=== PATIENT | male | born 1970 | race Caucasian/White ===

== ENCOUNTER 2025-09-25 12:35 | Inpatient (IN) | payer OTHER ==
[~2025-09-25] VITALS: Ht 190.5 cm; Wt 95.0 kg
[2025-09-25] MEDS ORDERED: Ipratropium/Albuterol SulF 2.5-0.5MG/3 ML Amp INH ONE (13:00)
[2025-09-25] MEDS ORDERED: Albuterol 2.5 MG/3 ML VIAL INH SCH (13:00)
[2025-09-25 13:32] LABS: pH Blood Venous 7.38 (7.34-7.37)
[2025-09-25 13:41] LABS: BASOPHILS ABSOLUTE AUTO 0.03 K/mm3 (0.00-0.23); BASOPHILS PERCENT AUTO 0 % (0-2); EOSINOPHILS ABSOLUTE AUTO 0.07 K/mm3 (0.00-0.68); EOSINOPHILS PERCENT AUTO 1 % (0-6); Hematocrit 39.0 % (37.0-53.0); Hemoglobin 12.0 g/dL (13.5-17.5); IMMATURE GRAN ABSOLUTE AUTO 0.02 K/mm3 (0.00-0.10); IMMATURE GRAN PERCENT AUTO 0 % (0-1); LYMPHOCYTES ABSOLUTE AUTO 1.11 K/mm3 (0.84-5.20); LYMPHOCYTES PERCENT AUTO 16 % (21-46); MONOCYTES ABSOLUTE AUTO 0.28 K/mm3 (0.16-1.47); MONOCYTES PERCENT AUTO 4 % (4-13); Mean Corpuscular HGB Conc 30.8 g/dL (31.5-36.5); Mean Corpuscular Volume 80 fL (80-100); NEUTROPHILS ABSOLUTE AUTO 5.65 K/mm3 (1.96-9.15); NEUTROPHILS PERCENT AUTO 79 % (41-73); NRBC ABSOLUTE 0.00 K/mm3 (0.00-0.02); NRBC Auto 0.0 /100 WBC (0.0-0.2); Platelet Count 457 K/mm3 (150-400); RDW Coefficient Variation 15.2 % (11.7-14.2); RDW Standard Deviation 43.9 fL (35.1-46.3)
[2025-09-25 13:50] LABS: Alanine Aminotransfer (ALT/SGP 12.0 U/L (12-78); Albumin, Blood 2.8 g/dL (3.4-5.0); Albumin/Globulin Ratio 0.7 (0.8-1.8); Anion Gap 9.0 mmol/L (3-11); Aspartate Aminotrans (AST/SGOT 11.0 U/L (12-37); Bilirubin, Total 0.3 mg/dL (0.1-1.0); Blood Urea Nitrogen 17.0 mg/dL (8-24); CO2, Blood 28.0 mmol/L (21-32); Calcium, Blood 9.3 mg/dL (8.5-10.1); Chloride, Blood 104.0 mmol/L (98-108); Creatinine, Blood 0.76 mg/dL (0.60-1.20); Globulin, Blood 4.1 g/dL (2.2-4.0); Glucose, Blood 189.0 mg/dL (70-99); Magnesium, Blood 2.1 mg/dL (1.6-2.4); Potassium, Blood 4.1 mmol/L (3.5-5.5); Sodium, Blood 137.0 mmol/L (136-145); Total Protein, Blood 6.9 g/dL (6.4-8.2)
[2025-09-25 14:12] LABS: Influenza A, PCR NEGATIVE (NEGATIVE); Influenza B, PCR NEGATIVE (NEGATIVE); Resp Syncytial Virus, PCR NEGATIVE (NEGATIVE); SARS-Cov-2 (COVID-19) PCR, MMC NEGATIVE (NEGATIVE)
[2025-09-25] MEDS ORDERED: NS 1,000 ML IV SCH ×2 (14:40→18:00)
[2025-09-25] MEDS ORDERED: CefTRIAXone Sodium 1,000 MG in NS 50 ML IV ONE (14:40)
[2025-09-25] MEDS ORDERED: Ipratropium/Albuterol SulF 2.5-0.5MG/3 ML Amp INH SCH ×2 (16:05→18:35)
[2025-09-25] MEDS ORDERED: Albuterol 2.5 MG/3 ML VIAL INH PRN ×2 (16:05→18:35)
[2025-09-25] MEDS ORDERED: FLU VACC TS2025-26(6MOS UP)/PF 45 MCG/0.5 ML SYRINGE IM SCH (16:05)
[2025-09-25 16:20] LABS: pH Blood Arterial 7.39 (7.35-7.45)
[2025-09-25] MEDS ORDERED: Budesonide 0.25 MG / 2 ML RESP INH SCH (16:45)
[2025-09-25 17:46] VITALS: BP 141/67
[2025-09-25] MEDS ORDERED: ASPI325 PO (17:56)
[2025-09-25] MEDS ORDERED: Piperacillin/Tazobactam Sod 3.375 GM in NS 100 ML IV SCH (18:00)
[2025-09-25 19:33] VITALS: BP 121/54
--- NOTE | 2025-09-25 19:39 | NUR ---
pt arrived to 331 via gurney from ED, he is able to stand and tx to bed, he is working to breath, is currently on 9 liters 02 via oxymizer, sats are in the 80's, reports productive cough of yellow/orange sputum, has been sob for a few months he resports, a/ox4, pleasant and cooperative with care, follows commands well, lungs are course with exp wheezing t/o, hrr, no edema noted, ppp+2, cap refill<3 sec, vs stable, afebrile, pivx2, sites are clear and patent, btx4, abd flat soft nontender, voids without diff, states he's been constipated for weeks, skin c/w/d, quyen espinoza, oriented to room layout and call system, call light in reach, call RT to assist with o2 levels.
[2025-09-25] MEDS ORDERED: Lactobacil 2-S.Thermo-Bifido 1 1 Cap PO SCH (21:00)
[2025-09-25 23:12] LABS: Influenza A/2009-H1 Not Detected (NOT DETECT); SARS-Cov-2 (COVID-19), BioFire Not Detected (NOT DETECT)
--- NOTE | 2025-09-25 23:37 | NUR ---
HOSPITALIST NOTIFIED THAT PT RESPIRATORY PCR PANEAL CAME BACK POSITIVE FOR ENTEROVIRUS/RHINOVIRUS. PER MD CURRENT IV ABX REGIMENT IS SUFFICIENT AT THIS TIME. PT STILL ON AIRVO 40 LPM @ 75% FIO2, SPO2 >95% ON BIOX. HOSPITALIST GAVE ORDER TO COMTINUE MONITORING PT RESPIRATORY STATUS AND IF PT STARTS TO DECOMPENSATE, PROBABLE TRANSFER TO PCU FOR HIGHER LEVEL OF CARE.
[2025-09-26 04:34] VITALS: BP 139/79
[2025-09-26 05:30] LABS: BASOPHILS ABSOLUTE AUTO 0.01 K/mm3 (0.00-0.23); BASOPHILS PERCENT AUTO 0 % (0-2); EOSINOPHILS ABSOLUTE AUTO 0.00 K/mm3 (0.00-0.68); EOSINOPHILS PERCENT AUTO 0 % (0-6); Hematocrit 35.5 % (37.0-53.0); Hemoglobin 10.7 g/dL (13.5-17.5); IMMATURE GRAN ABSOLUTE AUTO 0.01 K/mm3 (0.00-0.10); IMMATURE GRAN PERCENT AUTO 0 % (0-1); LYMPHOCYTES ABSOLUTE AUTO 0.40 K/mm3 (0.84-5.20); LYMPHOCYTES PERCENT AUTO 9 % (21-46); MONOCYTES ABSOLUTE AUTO 0.02 K/mm3 (0.16-1.47); MONOCYTES PERCENT AUTO 0 % (4-13); Mean Corpuscular HGB Conc 30.1 g/dL (31.5-36.5); Mean Corpuscular Volume 81 fL (80-100); NEUTROPHILS ABSOLUTE AUTO 4.09 K/mm3 (1.96-9.15); NEUTROPHILS PERCENT AUTO 90 % (41-73); NRBC ABSOLUTE 0.00 K/mm3 (0.00-0.02); NRBC Auto 0.0 /100 WBC (0.0-0.2); Platelet Count 390 K/mm3 (150-400); RDW Coefficient Variation 15.3 % (11.7-14.2); RDW Standard Deviation 44.4 fL (35.1-46.3)
--- NOTE | 2025-09-26 05:33 | NUR ---
SHIFT SUMMARY NOC PT A/O X 4. PLEASANT AND COOPERATIVE WITH CARE. VSS. PT PUT ON AIRVO 40 LPM FIO2 61% TO MAINTAIN SPO2 >90% AT SHIFT CHANGE. PT MAINTAINED SPO2 >95% OVERNIGHT, PT ALSO RECEIVED ONE TIME DOSE OF SOLU MEDROL 125 MG IV. PT REPIRATORY PANEL CAME BACK POSITIVE FOR ENTEROVIRUS/RHINOVIRUS, IS AWARE AND STATED PROPER IV ABX COVERAGE CURRENTLY, PENDING SPUTUM/URINE SAMPLES. DROPLET/ENTERIC CONTACT ISOLATION PRECAUTIONS INITIATED. PT CURRENTLY RESTING WITH BED IN LOWEST POSITION, AND CALL LIGHT WITHIN REACH.
[2025-09-26 05:51] LABS: Anion Gap 9.0 mmol/L (3-11); Blood Urea Nitrogen 16.0 mg/dL (8-24); CO2, Blood 25.0 mmol/L (21-32); Calcium, Blood 9.0 mg/dL (8.5-10.1); Chloride, Blood 107.0 mmol/L (98-108); Creatinine, Blood 0.74 mg/dL (0.60-1.20); Glucose, Blood 292.0 mg/dL (70-99); Potassium, Blood 5.1 mmol/L (3.5-5.5); Sodium, Blood 136.0 mmol/L (136-145)
[2025-09-26 07:19] VITALS: BP 132/80
[2025-09-26] MEDS ORDERED: Enoxaparin 40 MG/0.4 ML SYR SC SCH (09:00)
[2025-09-26] MEDS ORDERED: NS 250 ML IV PRN (10:20)
[2025-09-26] MEDS ORDERED: HydrALAZINE HCl 20 MG / ML 1ML Vial IV PRN (11:55)
[2025-09-26] MEDS ORDERED: Insulin Human Lispro 100 Units/ML 3ML Syringe SC SCH ×2 (12:25→16:30)
[2025-09-26 12:32] LABS: Prothrombin Time Results 11.9 Sec (9.7-11.5)
[2025-09-26 16:33] VITALS: BP 131/66
--- NOTE | 2025-09-26 18:16 | NUR ---
SHIFT SUMMARY PT HAD HEAD CT COMPLETED TODAY WITH NO METS TO THE BRAIN PER MD. PT RELIEVED TO HEAR THIS TODAY. PT TOLERATING THE AIRVO WELL, CURRENTLY 30L AND 40%. PT COUGHING UP A SMALL AMOUNT OF BLOODY SP[UTUM. MD AWARE. NO OTHER ACUTE CHANGES IN ASSESSMENT AT THIS TIME. VS REVIEWED. PT IND IN ROOM. PLAN FOR CT GUIDED BIOPSIES TOMORROW. ORDER TO HOLD LOVENOX TOMORROW PLACED. PT DENIES OTHER NEEDS AT THIS TIME.
[2025-09-26 20:02] VITALS: BP 132/72
[2025-09-27 03:44] VITALS: BP 145/75
--- NOTE | 2025-09-27 03:47 | NUR ---
SURGICAL CONSTULT WAS CALLED IN TO DR.JENNY ODEN'S ANSWERING AYANNA @[id number].
--- NOTE | 2025-09-27 03:48 | NUR ---
SHIFT SUMMARY NO ACUTE EVENTS DURING THIS SHIFT. PT CONTINUES ON AIRVO, SETTINGS ARE 30L AND 40%. PT DENIES SOB AND REPORTS FEELING COOMFORTALE WITH AIRVO. PT HAS A PRODUCTIVE COUHM PINKINSH SPUTUM. GUAFENESIN SCHEDULED, ADMINISTERED AT HS. PT DENIES PAIN. LUNGS HAVE CRACKLES T/O PER AUSCULTATION. CONT. PULSE OX O2 SAT'S LOW 90%. BED AT THE LOWEST POSITION, CALL LIG W/I REACH.
[2025-09-27 07:24] VITALS: BP 139/75
[2025-09-27 15:04] VITALS: BP 152/88
--- NOTE | 2025-09-27 16:19 | NUR ---
PT A/OX4. PLEASANT AND COOPERATIVE WITH CARE. 1PA TO BEDSIDE COMMODE D/T SOB WITH EXERTION. REMAINS ON 30L AIRVO SATTING IN HIGH 80S TO LOW 90S ON CONT PULSE OX. DENIES PAIN. REMAINS ON DROPLET PRECAUTIONS FOR RHINO VIRUS. NO ACUTE NEEDS AT THIS TIME.
[2025-09-27 19:39] VITALS: BP 152/75
[2025-09-27] MEDS ORDERED: Ipratropium/Albuterol SulF 2.5-0.5MG/3 ML Amp INH SCH (23:10)
[2025-09-28 03:33] VITALS: BP 138/83
[2025-09-28 05:13] LABS: Hematocrit 34.2 % (37.0-53.0); Hemoglobin 10.4 g/dL (13.5-17.5); Mean Corpuscular HGB Conc 30.4 g/dL (31.5-36.5); Mean Corpuscular Volume 80 fL (80-100); NRBC ABSOLUTE 0.00 K/mm3 (0.00-0.02); NRBC Auto 0.0 /100 WBC (0.0-0.2); Platelet Count 425 K/mm3 (150-400); RDW Coefficient Variation 15.3 % (11.7-14.2); RDW Standard Deviation 44.5 fL (35.1-46.3)
--- NOTE | 2025-09-28 05:14 | NUR ---
SHIFT SUMMARY; SELPT IN SHORT INTERVALS REMAINS ON AIRVO 30L. REMAINS IN CONTACT ISOLATION FOR RHINO.
[2025-09-28 05:44] LABS: Anion Gap 9.0 mmol/L (3-11); Blood Urea Nitrogen 13.0 mg/dL (8-24); CO2, Blood 26.0 mmol/L (21-32); Calcium, Blood 9.4 mg/dL (8.5-10.1); Chloride, Blood 104.0 mmol/L (98-108); Creatinine, Blood 0.69 mg/dL (0.60-1.20); Glucose, Blood 223.0 mg/dL (70-99); Potassium, Blood 4.1 mmol/L (3.5-5.5); Sodium, Blood 135.0 mmol/L (136-145)
[2025-09-28 07:38] VITALS: BP 143/77
[2025-09-28 16:38] VITALS: BP 150/88
--- NOTE | 2025-09-28 17:41 | NUR ---
PT A/OX4. PLEASANT AND COOPERATIVE WITH CARE. PT CONTINUES TO HAVE A PRODUCTIVE COUGH WITH THICK SPUTUM. REMAINS ON 30L AIRVO SATTING IN THE MID 90S ON CONT PULSE OX. INDEPENDENT IN ROOM. USES CALL LIGHT APPROPRIATELY. NO ACUTE NEEDS AT THIS TIME.
[2025-09-28] MEDS ORDERED: Insulin Human Lispro 100 Units/ML 3ML Syringe SC ONE (18:00)
[2025-09-28 19:43] VITALS: BP 138/74
[2025-09-28] MEDS ORDERED: Insulin Glargine 100 Unit/ML 3 ML SYR SC SCH (21:00)
[2025-09-29 03:09] VITALS: BP 133/80
--- NOTE | 2025-09-29 05:07 | NUR ---
SHIFT SUMMARY A&OX4. ABLE TO MAKE NEEDS KNOWN. REPORTS SOB WITH EXCERTION BUT RECOVERS QUICKLY AT REST. AT ONE POINT THE PTS O2 CAME OFF WHILE HE WAS SLEEPING AND O2 SATS DROPPED TO 84%. PT DENIED SOB. REAPPLIED O2 AND O2 SATS INCREASED BACK UP TO 94%. PT TOLERATING INFUSIONS WELL W/O COMPLAINTS. PT CURRENTLY SLEEPING IN BED AT LOWEST POSITION WITH CALL LIGHT WITHIN REACH.
[2025-09-29 05:29] LABS: Hematocrit 35.8 % (37.0-53.0); Hemoglobin 10.6 g/dL (13.5-17.5); Mean Corpuscular HGB Conc 29.6 g/dL (31.5-36.5); Mean Corpuscular Volume 81 fL (80-100); NRBC ABSOLUTE 0.00 K/mm3 (0.00-0.02); NRBC Auto 0.0 /100 WBC (0.0-0.2); Platelet Count 423 K/mm3 (150-400); RDW Coefficient Variation 15.2 % (11.7-14.2); RDW Standard Deviation 44.6 fL (35.1-46.3)
[2025-09-29 06:06] LABS: Alanine Aminotransfer (ALT/SGP 14.0 U/L (12-78); Albumin, Blood 2.7 g/dL (3.4-5.0); Albumin/Globulin Ratio 0.8 (0.8-1.8); Anion Gap 9.0 mmol/L (3-11); Aspartate Aminotrans (AST/SGOT 9.0 U/L (12-37); Bilirubin, Total 0.2 mg/dL (0.1-1.0); Blood Urea Nitrogen 14.0 mg/dL (8-24); CO2, Blood 28.0 mmol/L (21-32); Calcium, Blood 9.3 mg/dL (8.5-10.1); Chloride, Blood 101.0 mmol/L (98-108); Creatinine, Blood 0.7 mg/dL (0.60-1.20); Globulin, Blood 3.5 g/dL (2.2-4.0); Glucose, Blood 150.0 mg/dL (70-99); Potassium, Blood 3.8 mmol/L (3.5-5.5); Sodium, Blood 134.0 mmol/L (136-145); Total Protein, Blood 6.2 g/dL (6.4-8.2)
[2025-09-29 07:19] VITALS: BP 145/80
[2025-09-29] MEDS ORDERED: Ipratropium/Albuterol SulF 2.5-0.5MG/3 ML Amp INH SCH (12:00)
--- NOTE | 2025-09-29 15:02 | NUR ---
ROUNDED WITH PATIENT, DR. ROSE, AND BSRN. DISCUSSED OPTIONS FOR DIAGNOSIS AND THE BENIFITS OF GETTING A MORE SPECIFIC DIAGNOSIS WITH A BIOPSY IN ORDER TO FIGURE OUT A TREATMENT PLAN. PATIENT IS AGREEABLE TO BIOPSY THIS HOSPITILIZATION. EXPESSED THAT THERE IS A CHANCE THE NEEDLE BIOPSY WILL NOT GIVE THE FULL PICTURE AND HE MAY STILL NEED TO TRANSFER TO A HIGHER LEVEL OF CARE TO RECIEVE A MORE INDEPTH RETREVAL OF THE TUMOR FOR DIAGNOSTIC PURPOSES. PATIENT VERBALIZED UNDERSTANDING AND WAS AGREEABLE WITH PLAN
--- NOTE | 2025-09-29 16:31 | NUR ---
PT A/OX4. PLEASANT AND COOPERATIVE WITH CARE. INDEPENDENT IN ROOM. ABLE TO MAKE NEEDS KNOWN WELL WITH CALL LIGHT. RT TURNED AIRVO UP TO 35L TODAY DUE TO PT DESATTING WITH AMBULATION. CURRENT PLAN IS FOR BIOPSY FOR DX. NO ACUTE NEEDS AT THIS TIME.
[2025-09-29 17:17] VITALS: BP 139/84
[2025-09-29 19:43] VITALS: BP 139/78
--- NOTE | 2025-09-29 20:34 | NUR ---
PTS FS WAS 416 CALLED MD AND INFORMED HIM. HE STATED TO JUST CONTINUE THE FS ORDERED AND CHECK AGAIN IN MORNING
[2025-09-30 02:48] VITALS: BP 134/75
--- NOTE | 2025-09-30 04:27 | NUR ---
SHIFT SUMMARY PT ALERT ORIENTED X 4 ABLE TO VERBALIZE NEEDS GETS UP IN HIS ROOM AD FREEDOM AND AMBULATES TO THE BATHROOM. REMAINS ON ZITHROMAX AND ZOSYN ORDERED FOR PNEUMONIA. CONTINUES ON DROPLET ISOLATION FOR RHINO VIRUS. CONTINUES ON A AIRVO AT 35L 44%. C/O SOB ON EXERTION. HES SCHEDULED TO HAVE A BIOPSY DONE THIS AM OF HIS KIDNEY DUE TO MULTIPLE NODULES AND MASSES SEEN ON HIS LUNG AND KIDNEY. NO C/O PAIN THIS SHIFT. VSS THIS SHIFT SATTING AT 94% REMAINS ON A CONTINUOUS PULSE OX. RESTING IN BED AT THIS TIME WITH CALL LIGHT IN REACH
[2025-09-30 05:05] LABS: Hematocrit 33.1 % (37.0-53.0); Hemoglobin 9.9 g/dL (13.5-17.5); Mean Corpuscular HGB Conc 29.9 g/dL (31.5-36.5); Mean Corpuscular Volume 80 fL (80-100); NRBC ABSOLUTE 0.00 K/mm3 (0.00-0.02); NRBC Auto 0.0 /100 WBC (0.0-0.2); Platelet Count 415 K/mm3 (150-400); RDW Coefficient Variation 15.2 % (11.7-14.2); RDW Standard Deviation 44.3 fL (35.1-46.3)
[2025-09-30 05:38] LABS: Alanine Aminotransfer (ALT/SGP 15.0 U/L (12-78); Albumin, Blood 2.5 g/dL (3.4-5.0); Albumin/Globulin Ratio 0.7 (0.8-1.8); Anion Gap 7.0 mmol/L (3-11); Aspartate Aminotrans (AST/SGOT 6.0 U/L (12-37); Bilirubin, Total 0.2 mg/dL (0.1-1.0); Blood Urea Nitrogen 16.0 mg/dL (8-24); CO2, Blood 29.0 mmol/L (21-32); Calcium, Blood 9.5 mg/dL (8.5-10.1); Chloride, Blood 101.0 mmol/L (98-108); Creatinine, Blood 0.69 mg/dL (0.60-1.20); Globulin, Blood 3.6 g/dL (2.2-4.0); Glucose, Blood 198.0 mg/dL (70-99); Potassium, Blood 4.2 mmol/L (3.5-5.5); Sodium, Blood 133.0 mmol/L (136-145); Total Protein, Blood 6.1 g/dL (6.4-8.2)
[2025-09-30 07:27] VITALS: BP 138/74
--- NOTE | 2025-09-30 10:32 | NUR ---
pt sitting up on the side of the bed, awake a/ox4, pleasant and cooperative with care, follows commands well, denies pain at this time, lungs have course exp wheezing t/o, on airvo at 45-44%, reports occ productive cough of yellow sputum, hrr, 2+ edema noted to b/l le, ppp+1, cap refill <3 sec, vs stable, afebrile, piv x2, to rfa and lac, sites are clear and patent, btx4, abd flat soft nontender, voids without diff, skin c/w/d, maew, quyen, call light in reach.
[2025-09-30 15:52] VITALS: BP 142/79
--- NOTE | 2025-09-30 18:37 | NUR ---
pt has had no acute changes this shift, continues on 35% airvo, sats are in the mid 90's, denies any complaints, or needs, call light in reach.
[2025-09-30 19:50] VITALS: BP 142/71
[2025-10-01] VITALS (7 sets, daily range): BP systolic 136–153; BP diastolic 72–82
--- NOTE | 2025-10-01 03:30 | NUR ---
SHIFT SUMMARY PT ALERT ORIENTED X 4 ABLE TO VERBALIZE NEEDS GETS UP IN ROOM AD FREEDOM AND AMBULATES TO THE BATHROOM. REMAINS ON AIRVO AT 35L 52& FIO2. C/O SOB WITH EXERTION. HES DUE TO HAVE A CT NEEDLE BIOPSY OF HIS RT KIDNEY TODAY. REMAINS ON ZOSYN ORDERED FOR PNEUMONIA. CONTINUES WITH A PRODUCTIVE COUGH AND CONGESTION. CONTINUES ON A CONTINUOUS PULSE OX SATTING AT 96%. REMAINS ON DROPLET CONTACT ISOLATION R/T RHINOVIRUS. HE HAS SEVERAL NODULES IN HIS LUNG AND KIDNEY. HES RESTING IN BED AT THIS TIME WITH CALL LIGHT IN REACH
[2025-10-01 05:51] LABS: BASOPHILS ABSOLUTE AUTO 0.02 K/mm3 (0.00-0.23); BASOPHILS PERCENT AUTO 0 % (0-2); EOSINOPHILS ABSOLUTE AUTO 0.03 K/mm3 (0.00-0.68); EOSINOPHILS PERCENT AUTO 0 % (0-6); Hematocrit 35.4 % (37.0-53.0); Hemoglobin 10.6 g/dL (13.5-17.5); IMMATURE GRAN ABSOLUTE AUTO 0.02 K/mm3 (0.00-0.10); IMMATURE GRAN PERCENT AUTO 0 % (0-1); LYMPHOCYTES ABSOLUTE AUTO 1.26 K/mm3 (0.84-5.20); LYMPHOCYTES PERCENT AUTO 16 % (21-46); MONOCYTES ABSOLUTE AUTO 0.33 K/mm3 (0.16-1.47); MONOCYTES PERCENT AUTO 4 % (4-13); Mean Corpuscular HGB Conc 29.9 g/dL (31.5-36.5); Mean Corpuscular Volume 80 fL (80-100); NEUTROPHILS ABSOLUTE AUTO 6.29 K/mm3 (1.96-9.15); NEUTROPHILS PERCENT AUTO 79 % (41-73); NRBC ABSOLUTE 0.00 K/mm3 (0.00-0.02); NRBC Auto 0.0 /100 WBC (0.0-0.2); Platelet Count 461 K/mm3 (150-400); RDW Coefficient Variation 15.1 % (11.7-14.2); RDW Standard Deviation 43.9 fL (35.1-46.3)
[2025-10-01 06:12] LABS: Anion Gap 7.0 mmol/L (3-11); Blood Urea Nitrogen 16.0 mg/dL (8-24); CO2, Blood 30.0 mmol/L (21-32); Calcium, Blood 9.6 mg/dL (8.5-10.1); Chloride, Blood 102.0 mmol/L (98-108); Creatinine, Blood 0.66 mg/dL (0.60-1.20); Glucose, Blood 164.0 mg/dL (70-99); Potassium, Blood 3.9 mmol/L (3.5-5.5); Sodium, Blood 135.0 mmol/L (136-145)
--- NOTE | 2025-10-01 10:45 | NUR ---
NOTE PT ON ARVO. PT GETTING BIOPSY TODAY. CT REPORTED IF PT CAN TOLERATE BEING IN PRONE FOR PROCEDURE. THIS RN CONSULTED RT. RT REPORTED "OK TO TAKE OFF ARVO AND LEAVE SETTINGS AND APPLY 8L OF O2 VIA HIGH FLOW TO SEE HOW PT TOLERATES." NOTIFIED. REPORTED "OK TO TRY." THIS RN SWITCHED O2, APPLIED 8L OF O2. PT SATS ARE 94% SITTING UP. PT REPORTS "NOT REALLY HAVING DIFFICULT BREATHING." THIS RN ATTEMPTED PT LAYING FLAT, PT SPOW 94%. PT REPORTS "NOT REALLY HAVING DIFFIFULT BREATHING." PT ATTEMPTED TO LAY PRONE, PT REPORTED "NOT REALLY HAVING DIFFICULT BREATHING." SPO2 IS 91%. THIS RN HELD NAIN, , NOTIFIED. PT TRANSPORTED TO CT.
--- NOTE | 2025-10-01 15:14 | NUR ---
NOTE ARVO REAPPLIED POST PROCEDURE. 8L OF O2 APPLIED AGAIN 1 HR PRE RESCAN. PT BACK ON ARVO IN ROOM. PT CONT TO STATE "NOT HAVING TOO MUCH TROUBLE BREATHING." RESP EVEN/UNLABORED. PT MAINTAINING SATS ABOVE 91%. CALL LIGHT IN REACH. PT CALLS APPROPRIATE.
--- NOTE | 2025-10-01 17:15 | NUR ---
SHIFT SUMMARY PT A&OX4. PT ADMITTED DUE TO BILATERAL PNEUMONIA. PT ON ISOLATION DROPLET/CONTACT FOR ROSAURA. PT USUALLY INDEPENDENT, ON STRICT BEDREST. PT HAD BIOPSY COMPLETED TODAY. RESULTS PENDING. PT ON ARVO OXYGEN, SET AT 35L AND 36 FIO2. RESPIRATORY INVOLVED IN TREATMENT. PT ON CONT PULSE OX, SPO2 IS 91%. THIS RN ASKED IF PT IS SOB. PT REPLIED "FEELING PRETTY OK AND DECENT RIGHT NOW." PT GETTING IV ANTIBIOTIC. PT ACHS BLOOD SUGARS. PT HAS ORDERS FOR NO ASPIRIN OR BLOOD THINNERS FOR X48 HRS. PT HAS ANTI EMBOLIC STOCKINGS ON. PT IN BED, BED IN LOWEST POSIITON, BED LOCKED, CALL LIGHT IN REACH. PT CALLS APPROPRIATE.
--- NOTE | 2025-10-02 03:30 | NUR ---
SHIFT SUMMARY PT ALERT ORIENTED X 4 ABLE TO VERBALIZE NEEDS GETS UP IN ROOM AND AMBULATES TO THE BATHROOM. HE WAS ON STRICT BEDREST UNTIL 2HRS AFTER HIS BIOPSY WAS DONE NOW HES AD FREEDOM. NO C/O PAIN. NO S/S BLEEDING. BLOOD THINNERS REMAIN ON HOLD X 48HRS. REMAINS ON AIRVO AT 30L 26% FIO2. HE DOES HAVE SOME SOB WITH EXERTION. REMAINS ON CONT PULSE OX SATTING AT 92% WHILE ON AIRVO. HE DID REMOVE HIS O2 A COUPLE OF TIMES AND HE DESATS DOWN TO THE LOW 80S. REMAINS ON ZOSYN ORDERED FOR BILATERAL PNEUMONIA. CONTINUES ON DROPLET ISOLATION R/T RHINOVIRUS. FS DONE AC AND HS WAS 432. INSULIN WAS GIVEN. WERE AWAITING RESULTS OF HIS KIDNEY BIOPSY. RESTING IN BED AT THIS TIME WITH CALL LIGHT IN REACH .
[2025-10-02 03:52] VITALS: BP 148/76
[2025-10-02 05:27] LABS: BASOPHILS ABSOLUTE AUTO 0.02 K/mm3 (0.00-0.23); BASOPHILS PERCENT AUTO 0 % (0-2); EOSINOPHILS ABSOLUTE AUTO 0.00 K/mm3 (0.00-0.68); EOSINOPHILS PERCENT AUTO 0 % (0-6); Hematocrit 34.1 % (37.0-53.0); Hemoglobin 10.4 g/dL (13.5-17.5); IMMATURE GRAN ABSOLUTE AUTO 0.04 K/mm3 (0.00-0.10); IMMATURE GRAN PERCENT AUTO 1 % (0-1); LYMPHOCYTES ABSOLUTE AUTO 1.16 K/mm3 (0.84-5.20); LYMPHOCYTES PERCENT AUTO 14 % (21-46); MONOCYTES ABSOLUTE AUTO 0.41 K/mm3 (0.16-1.47); MONOCYTES PERCENT AUTO 5 % (4-13); Mean Corpuscular HGB Conc 30.5 g/dL (31.5-36.5); Mean Corpuscular Volume 79 fL (80-100); NEUTROPHILS ABSOLUTE AUTO 6.81 K/mm3 (1.96-9.15); NEUTROPHILS PERCENT AUTO 81 % (41-73); NRBC ABSOLUTE 0.00 K/mm3 (0.00-0.02); NRBC Auto 0.0 /100 WBC (0.0-0.2); Platelet Count 414 K/mm3 (150-400); RDW Coefficient Variation 15.3 % (11.7-14.2); RDW Standard Deviation 44.1 fL (35.1-46.3)
[2025-10-02 05:57] LABS: Anion Gap 10.0 mmol/L (3-11); Blood Urea Nitrogen 18.0 mg/dL (8-24); CO2, Blood 29.0 mmol/L (21-32); Calcium, Blood 9.6 mg/dL (8.5-10.1); Chloride, Blood 100.0 mmol/L (98-108); Creatinine, Blood 0.75 mg/dL (0.60-1.20); Glucose, Blood 207.0 mg/dL (70-99); Potassium, Blood 3.8 mmol/L (3.5-5.5); Sodium, Blood 135.0 mmol/L (136-145)
[2025-10-02 07:41] VITALS: BP 146/78
[2025-10-02 15:22] VITALS: BP 152/77
--- NOTE | 2025-10-02 17:18 | NUR ---
BLOOD SUGAR OF 391. ATTEMPT TO NOTIFY PROVIDER, UNABLE TO REACH AT THIS TIME.
--- NOTE | 2025-10-02 17:21 | NUR ---
PROVIDER NOTIFIED OF BLOOD SUGAR OF 391. NO NEW ORDERS AT THIS TIME.
--- NOTE | 2025-10-02 17:54 | NUR ---
SHIFT SUMMARY PT IS A/OX4. INDEPENDENT IN THE ROOM. AT THE BEGINNING OF THIS SHIFT, PT ON AIRVO 30 LPM. PT IS CURRENTLY ON 3L HIGH FLOW NC ON CONT PULSE OX, SATS >92%. BLOOD SUGAR AT 391 THIS EVENING, PHYSICAN AWARE, INSULIN GIVEN PER MAR. AWAITING BIOPSY RESULTS. PT IS PLEASANT COOPERATIVE WITH CARE.
[2025-10-02 19:21] VITALS: BP 151/84
--- NOTE | 2025-10-02 20:38 | NUR ---
WILDLIFE PROTECTOR PROVIDER NOTIFIED OF BLOOD SUGAR OF 383- NO CHANGE IN SCHEDULED INSULIN.
[2025-10-03 03:50] VITALS: BP 152/77
[2025-10-03 04:55] LABS: BASOPHILS ABSOLUTE AUTO 0.01 K/mm3 (0.00-0.23); BASOPHILS PERCENT AUTO 0 % (0-2); EOSINOPHILS ABSOLUTE AUTO 0.05 K/mm3 (0.00-0.68); EOSINOPHILS PERCENT AUTO 1 % (0-6); Hematocrit 36.3 % (37.0-53.0); Hemoglobin 11.0 g/dL (13.5-17.5); IMMATURE GRAN ABSOLUTE AUTO 0.03 K/mm3 (0.00-0.10); IMMATURE GRAN PERCENT AUTO 0 % (0-1); LYMPHOCYTES ABSOLUTE AUTO 1.35 K/mm3 (0.84-5.20); LYMPHOCYTES PERCENT AUTO 15 % (21-46); MONOCYTES ABSOLUTE AUTO 0.37 K/mm3 (0.16-1.47); MONOCYTES PERCENT AUTO 4 % (4-13); Mean Corpuscular HGB Conc 30.3 g/dL (31.5-36.5); Mean Corpuscular Volume 80 fL (80-100); NEUTROPHILS ABSOLUTE AUTO 7.14 K/mm3 (1.96-9.15); NEUTROPHILS PERCENT AUTO 80 % (41-73); NRBC ABSOLUTE 0.00 K/mm3 (0.00-0.02); NRBC Auto 0.0 /100 WBC (0.0-0.2); Platelet Count 424 K/mm3 (150-400); RDW Coefficient Variation 15.5 % (11.7-14.2); RDW Standard Deviation 44.6 fL (35.1-46.3)
[2025-10-03 05:24] LABS: Anion Gap 8.0 mmol/L (3-11); Blood Urea Nitrogen 18.0 mg/dL (8-24); CO2, Blood 31.0 mmol/L (21-32); Calcium, Blood 9.4 mg/dL (8.5-10.1); Chloride, Blood 99.0 mmol/L (98-108); Creatinine, Blood 0.81 mg/dL (0.60-1.20); Glucose, Blood 141.0 mg/dL (70-99); Potassium, Blood 3.6 mmol/L (3.5-5.5); Sodium, Blood 134.0 mmol/L (136-145)
--- NOTE | 2025-10-03 05:59 | NUR ---
SHIFT SUMMARY PT MAINTAINED ON O2- 3L NC THROUGH THE NIGHT WITH SATS WNL. CONTINUOUS PULSE OX IN PLACE. PT OOB INDEPENDENTLY AND ENDORSES ONLY A SLIGHT AMOUNT OF DYSPNEA WITH ACTIVITY. IV ANTIBIOTICS CONTINUE PER ORDER. PT SLEPT SHORT INTERVALS DURING THE NIGHT.
[2025-10-03 08:02] VITALS: BP 143/73
[2025-10-03 14:50] VITALS: BP 148/72
--- NOTE | 2025-10-03 17:13 | NUR ---
SHIFT SUMMARY: PATIENT A/OX4, HAS FLAT/WITHDRAWN AFFECT, PLEASANT AND COOPERATIVE c CARE. PATIENT DENIES CP/PRESSURE, SOB, N/V AND DIZZINESS. PATIENT ON 3L O2 VIA NC, SATTING 93-95%, ON SOFT METALS HAND ENGRAVER. PATIENT HAS GOOD APPETITE, CONTINENT OF BAB AND HAS BEEN AMBULATING IN ROOM/BATHROOM INDEPENDENTLY. PATIENT RECEIVED SCHEDULED MEDS PER EMAR. VITAL SIGNS REVIEWED. PATIENT ON DROPLET ISOLATION FOR RHINO POSITIVE. PATIENT HAS HAD NO COMPLAINTS OR DENIES NEW CONCERN THIS SHIFT. CALL LIGHT IN REACH.
[2025-10-03] MEDS ORDERED: Insulin Human Lispro 100 Units/ML 3ML Syringe SC SCH (17:40)
--- NOTE | 2025-10-03 17:41 | NUR ---
MD NOTIFICATION NOTE: PATIENT BLOOD SUGAR [address] VILLALBA, RECEIVED ORDER TO CHANGED HUMALOG INSULIN TO MEDIUM CORRECTION SCALE AND START DOSE NOW.
[2025-10-03 19:48] VITALS: BP 146/67
[2025-10-03] MEDS ORDERED: Insulin Human Lispro 100 Units/ML 3ML Syringe SC ONE (23:05)
[2025-10-04 04:38] VITALS: BP 146/86
--- NOTE | 2025-10-04 05:31 | NUR ---
SHIFT SUMMARY DROPLET PRECAUTION FOR RHINOVIRUS B/L PNEUMONIA. DECREASED FROM 3L NC TO 2L NC THIS EVENING. BASELINE IS RA. CONSIDER HOME O2 EVAL IF NOT ON RA BY DAY OF DISCHARGE. AWAITING R RENAL BIOPSY RESULT. PCP IS [facility]. REMAINS A&OX4 IN ROOM. TRINY HOSE APPLIED, L FOOT EDEMATOUS COMPARED TO R FOOT. DUE TO CBG OF 417, PROVIDER INCREASED INSULIN FROM MEDIUM TO HIGH SS, AND ADVISED ADDITIONAL 5 U LISPRO INSULIN AT 2100. WHEEZING IMPROVED WITH BREATHING TREATMENTS FROM RT.
[2025-10-04 07:31] VITALS: BP 139/75
[2025-10-04 16:11] VITALS: BP 147/84
--- NOTE | 2025-10-04 17:37 | NUR ---
NOTE PT ALERT. VERY FEW NEEDS. AD FREEDOM IN ROOM. STILL REQUIRING OXYGEN. 3L HIGH FLOW N/C. SAT 91-93% SITTING UP TALKING. MOIST COUGH. DENIED PAIN OR ANY DISCOMFORT. GOOD APPETITE. BED LOW LOCKED. SLIPPY SOCKS ON. CALL LIGHT WITH IN REACH. CARE ONGOING.
[2025-10-04 20:44] VITALS: BP 147/83
--- NOTE | 2025-10-04 21:09 | NUR ---
PROVIDER CONTACT TALKED WITH NETO ABOUT HIGH CBG. NO NEW ORDERS
[2025-10-05 04:43] VITALS: BP 144/81
--- NOTE | 2025-10-05 04:53 | NUR ---
SHIFT SUMMARY PATIENT IS ALERT AND ORIENTED. PATIENT HAS HAD NO ACUTE EVENTS THIS SHIFT. VITAL SIGNS REVIEWED. PATIENT IS IND IN ROOM. PATIENT IS STILL ON 3L NC. PATIENT HAS NO COMPLAINTS OF SOB, NAUSEA, PAIN OR VOMITTING THIS SHIFT. PATIENTS CBG IS ELEVATED, PROVIDER AWARE. BED IN LOCKED AND LOWEST POSITION. CALL LIGHT IN PLACE.
[2025-10-05 05:11] LABS: BASOPHILS ABSOLUTE AUTO 0.01 K/mm3 (0.00-0.23); BASOPHILS PERCENT AUTO 0 % (0-2); EOSINOPHILS ABSOLUTE AUTO 0.03 K/mm3 (0.00-0.68); EOSINOPHILS PERCENT AUTO 0 % (0-6); Hematocrit 36.4 % (37.0-53.0); Hemoglobin 11.3 g/dL (13.5-17.5); IMMATURE GRAN ABSOLUTE AUTO 0.04 K/mm3 (0.00-0.10); IMMATURE GRAN PERCENT AUTO 0 % (0-1); LYMPHOCYTES ABSOLUTE AUTO 1.37 K/mm3 (0.84-5.20); LYMPHOCYTES PERCENT AUTO 14 % (21-46); MONOCYTES ABSOLUTE AUTO 0.41 K/mm3 (0.16-1.47); MONOCYTES PERCENT AUTO 4 % (4-13); Mean Corpuscular HGB Conc 31.0 g/dL (31.5-36.5); Mean Corpuscular Volume 79 fL (80-100); NEUTROPHILS ABSOLUTE AUTO 7.94 K/mm3 (1.96-9.15); NEUTROPHILS PERCENT AUTO 81 % (41-73); NRBC ABSOLUTE 0.00 K/mm3 (0.00-0.02); NRBC Auto 0.0 /100 WBC (0.0-0.2); Platelet Count 429 K/mm3 (150-400); RDW Coefficient Variation 15.6 % (11.7-14.2); RDW Standard Deviation 44.0 fL (35.1-46.3)
[2025-10-05 05:29] LABS: Anion Gap 8.0 mmol/L (3-11); Blood Urea Nitrogen 18.0 mg/dL (8-24); CO2, Blood 30.0 mmol/L (21-32); Calcium, Blood 9.4 mg/dL (8.5-10.1); Chloride, Blood 101.0 mmol/L (98-108); Creatinine, Blood 0.6 mg/dL (0.60-1.20); Glucose, Blood 175.0 mg/dL (70-99); Potassium, Blood 3.8 mmol/L (3.5-5.5); Sodium, Blood 135.0 mmol/L (136-145)
[2025-10-05 07:53] VITALS: BP 144/91
[2025-10-05 15:13] VITALS: BP 141/72
--- NOTE | 2025-10-05 19:29 | NUR ---
NOTE PT RESTING QUIETLY. RARELY USES THE CALL LIGHT. BLOOD SUGARS ELEVATED THROUGH THE DAY. COVERED PER SLIDING SCALE. LUNGS CONTINUE TO HAVE EXP FINE CRACKLES. PREDNISONE DECREASED TODAY. PT STILL REQUIRING 2L HIGH FLOW OXYGEN. CONT BUIOX AT BEDSIDE. SAT 90-92% SITTING ON THE BEDSIDE. DENIED DISOCMFORT. UP TO BTHROOM AD FREEDOM. DENIED DIZZINESS OR WEAKNESS. BED LOW AND LOCKED. CALL LIGHT WITH IN REACH. SLIPPY SOCKS ON. CARE ONGOING.
[2025-10-05] MEDS ORDERED: Insulin Glargine 100 Unit/ML 3 ML SYR SC SCH (21:00)
[2025-10-05 21:09] VITALS: BP 144/80
--- NOTE | 2025-10-06 04:28 | NUR ---
[employer] FARMER SUMMARY PT A&OX4, VSS. ABLE TO EXPRESS NEEDS EFFECTIVELY. NO ACUTE CHANGES THIS SHIFT. HAS BEEN ASLEEP FOR MOST OF THE NIGHT. CHEST RISE/RESPIRATIONS NOTED. REMAINS ON DROPLET PRECAUTIONS. REMAINS ON 2L NC W/ O2 SATS >=90%. BED RAILS UP X 2, BED IN LOWEST POSITION, BED WHEELS LOCKED, PERSONAL BELONGINGS AND CALL LIGHT WITHIN REACH FOR SAFETY.
[2025-10-06 04:46] VITALS: BP 175/92
[2025-10-06 05:09] LABS: BASOPHILS ABSOLUTE AUTO 0.01 K/mm3 (0.00-0.23); BASOPHILS PERCENT AUTO 0 % (0-2); EOSINOPHILS ABSOLUTE AUTO 0.05 K/mm3 (0.00-0.68); EOSINOPHILS PERCENT AUTO 1 % (0-6); Hematocrit 38.9 % (37.0-53.0); Hemoglobin 11.9 g/dL (13.5-17.5); IMMATURE GRAN ABSOLUTE AUTO 0.03 K/mm3 (0.00-0.10); IMMATURE GRAN PERCENT AUTO 0 % (0-1); LYMPHOCYTES ABSOLUTE AUTO 1.55 K/mm3 (0.84-5.20); LYMPHOCYTES PERCENT AUTO 17 % (21-46); MONOCYTES ABSOLUTE AUTO 0.40 K/mm3 (0.16-1.47); MONOCYTES PERCENT AUTO 5 % (4-13); Mean Corpuscular HGB Conc 30.6 g/dL (31.5-36.5); Mean Corpuscular Volume 81 fL (80-100); NEUTROPHILS ABSOLUTE AUTO 6.85 K/mm3 (1.96-9.15); NEUTROPHILS PERCENT AUTO 77 % (41-73); NRBC ABSOLUTE 0.00 K/mm3 (0.00-0.02); NRBC Auto 0.0 /100 WBC (0.0-0.2); Platelet Count 413 K/mm3 (150-400); RDW Coefficient Variation 15.5 % (11.7-14.2); RDW Standard Deviation 44.9 fL (35.1-46.3)
[2025-10-06 05:12] LABS: Alanine Aminotransfer (ALT/SGP 14.0 U/L (12-78); Albumin, Blood 2.7 g/dL (3.4-5.0); Albumin/Globulin Ratio 0.8 (0.8-1.8); Anion Gap 7.0 mmol/L (3-11); Aspartate Aminotrans (AST/SGOT 4.0 U/L (12-37); Bilirubin, Total 0.3 mg/dL (0.1-1.0); Blood Urea Nitrogen 20.0 mg/dL (8-24); CO2, Blood 30.0 mmol/L (21-32); Calcium, Blood 9.7 mg/dL (8.5-10.1); Chloride, Blood 103.0 mmol/L (98-108); Creatinine, Blood 0.83 mg/dL (0.60-1.20); Globulin, Blood 3.3 g/dL (2.2-4.0); Glucose, Blood 129.0 mg/dL (70-99); Potassium, Blood 4.1 mmol/L (3.5-5.5); Sodium, Blood 136.0 mmol/L (136-145); Total Protein, Blood 6.0 g/dL (6.4-8.2)
[2025-10-06 07:39] VITALS: BP 135/74
[2025-10-06 15:24] VITALS: BP 143/69
--- NOTE | 2025-10-06 17:52 | NUR ---
PT ON 2L NC SATS ABOVE 92%, INDEPENDENT IN ROOM, BG TRENDS HIGHER DAY PROGRESSES, TOLERATING ORAL INTAKE, DENIES PAIN. PLAN OF CARE ONGOING.
[2025-10-06 20:23] VITALS: BP 141/75
--- NOTE | 2025-10-06 21:46 | NUR ---
PROVIDER CONTACT PROVIDER NETO NOTIFIED OF BG OF 352 BY BREAK RN CAT. NO FURTHER ORDERS AT THIS TIME.
[2025-10-07 03:30] VITALS: BP 135/70
--- NOTE | 2025-10-07 04:07 | NUR ---
HANDLE MACHINE OPERATOR SUMMARY PT A&OX4, VSS. ABLE TO COMMUNICATE NEEDS EFFECTIVELY. HAS BEEN ASLEEP FOR MOST OF THE NIGHT. CHEST RISE/RESPIRATIONS NOTED. PROVIDER NETO CONTACTED BY JOHN RN FOR BG OF 352. NO FURTHER ORDERS AT THIS TIME. REMAINS ON DROPLET PRECAUTIONS. TITRATED DOWN TO 1L NC W/ O2 SATS >=90%. BED RAILS UP X 2, BED IN LOWEST POSITION, BED WHEELS LOCKED, PERSONAL BELONGINGS AND CALL LIGHT WITHIN REACH FOR SAFETY.
[2025-10-07 06:33] LABS: pH Blood Venous 7.46 (7.34-7.37)
[2025-10-07 06:35] LABS: BASOPHILS ABSOLUTE AUTO 0.01 K/mm3 (0.00-0.23); BASOPHILS PERCENT AUTO 0 % (0-2); EOSINOPHILS ABSOLUTE AUTO 0.08 K/mm3 (0.00-0.68); EOSINOPHILS PERCENT AUTO 1 % (0-6); Hematocrit 38.1 % (37.0-53.0); Hemoglobin 11.7 g/dL (13.5-17.5); IMMATURE GRAN ABSOLUTE AUTO 0.04 K/mm3 (0.00-0.10); IMMATURE GRAN PERCENT AUTO 0 % (0-1); LYMPHOCYTES ABSOLUTE AUTO 1.75 K/mm3 (0.84-5.20); LYMPHOCYTES PERCENT AUTO 17 % (21-46); MONOCYTES ABSOLUTE AUTO 0.48 K/mm3 (0.16-1.47); MONOCYTES PERCENT AUTO 5 % (4-13); Mean Corpuscular HGB Conc 30.7 g/dL (31.5-36.5); Mean Corpuscular Volume 80 fL (80-100); NEUTROPHILS ABSOLUTE AUTO 7.73 K/mm3 (1.96-9.15); NEUTROPHILS PERCENT AUTO 77 % (41-73); NRBC ABSOLUTE 0.00 K/mm3 (0.00-0.02); NRBC Auto 0.0 /100 WBC (0.0-0.2); Platelet Count 369 K/mm3 (150-400); RDW Coefficient Variation 15.4 % (11.7-14.2); RDW Standard Deviation 44.6 fL (35.1-46.3)
[2025-10-07 06:52] LABS: Anion Gap 6.0 mmol/L (3-11); Blood Urea Nitrogen 18.0 mg/dL (8-24); CO2, Blood 33.0 mmol/L (21-32); Calcium, Blood 9.4 mg/dL (8.5-10.1); Chloride, Blood 102.0 mmol/L (98-108); Creatinine, Blood 0.83 mg/dL (0.60-1.20); Glucose, Blood 112.0 mg/dL (70-99); Potassium, Blood 3.6 mmol/L (3.5-5.5); Sodium, Blood 137.0 mmol/L (136-145)
[2025-10-07 07:40] VITALS: BP 146/76
[2025-10-07 15:08] VITALS: BP 151/87
[2025-10-07] MEDS ORDERED: GUAI600T33 PO (16:01)
[2025-10-07] MEDS ORDERED: LOSA25 PO (16:01)
[2025-10-07] MEDS ORDERED: Prednisone10 MG PO (16:04)
[2025-10-07] MEDS ORDERED: ALBU8HFA2 INH (16:24)
[2025-10-07] MEDS ORDERED: BASAGLAR K100 UNIT/1 SC (16:24)
[2025-10-07] MEDS ORDERED: TRELEGY ELLIPT1 EACH INH (16:25)
[2025-10-07] MEDS ORDERED: HUMALOG KW100 UNIT/1 SC (16:28)
--- NOTE | 2025-10-07 17:25 | NUR ---
PT DISCHARGED VIA WHEELCHAIR ON 2L NC WITH BROTHER AND STAFF ASSISTED TO FRONT DOOR. DISCHARGE PRESCRIPTIONS REVIEWED AND PT EDUCATED ON INDICATIONS ON HOW TO TAKE NEW PRESCRIPTIONS. ALL QUESTIONS ANSWERED. PRESCRIPTIONS FAXED TO [facility]. OXYGEN DELIVERY TO PT'S HOME CONFIRMED BY PT.
--- NOTE | 2025-10-07 17:47 | NUR ---
Call to patient regarding prescription that Dr. Deutsch had written for him for glucometer/strips/lancets. Patient brother will pickling solution maker at [facility] desk.
== END 2025-10-07 17:17 | disposition home or self-care (01) | DRG 871 ==
LOC: ER 12:35 → MEDS 12:36 → ENPENDDIS 10-07 15:29 → MEDS 10-07 17:17
PROVIDERS: Family Medicine; Student in an Organized Health Care Education/Training Program; ADMIT Internal Medicine
DX: A41.9 Sepsis, unspecified organism (principal); E43 Unspecified severe protein-calorie malnutrition; J18.9 Pneumonia, unspecified organism; J96.01 Acute respiratory failure with hypoxia; J44.1 Chronic obstructive pulmonary disease with (acute) exacerbation; C64.1 Malignant neoplasm of right kidney, except renal pelvis; C78.02 Secondary malignant neoplasm of left lung; C78.01 Secondary malignant neoplasm of right lung; C78.6 Secondary malignant neoplasm of retroperitoneum and peritoneum; R65.20 Severe sepsis without septic shock; I10 Essential (primary) hypertension; R73.9 Hyperglycemia, unspecified; B97.89 Other viral agents as the cause of diseases classified elsewhere; Z68.25 Body mass index [BMI] 25.0-25.9, adult; Z87.891 Personal history of nicotine dependence; Z80.1 Family history of malignant neoplasm of trachea, bronchus and lung; Z82.49 Family history of ischemic heart disease and other diseases of the circulatory system; Z83.3 Family history of diabetes mellitus; Z79.82 Long term (current) use of aspirin; Z79.899 Other long term (current) drug therapy
CPT/HCPCS: 0202U; 36415; 36600; 70470; 71046; 71260; 74177; 77012; 80048; 80053; 82803; 82947; 83036; 83605; 83690; 83735; 83880; 84145; 84484; 85025; 85027; 85610; 85730; 87040; 87070; 87205; 87449; 87637; 88305; 93005; 93010; 94640; 94664; 94760; 94761; 94762; 96365-59; 96368; 99285-25; A9270; G0378; J0456; J0696; J1650; J1815; J2543; J2919; J7030; J7050; J7512; Q9967

== ENCOUNTER → 2025-10-11 | Outpatient (CLI) | payer OTHER ==
[~2025-10-11] MED LIST: ALBU8HFA2 INH; ASPI325 PO; BASAGLAR K100 UNIT/1 SC; GUAI600T33 PO; HUMALOG KW100 UNIT/1 SC; LOSA25 PO; Prednisone10 MG PO; TRELEGY ELLIPT1 EACH INH
[2025-10-11 18:52] LABS: Hematocrit 37.3 % (37.0-53.0); Hemoglobin 11.5 g/dL (13.5-17.5); Mean Corpuscular HGB Conc 30.8 g/dL (31.5-36.5); Mean Corpuscular Volume 80 fL (80-100); NRBC ABSOLUTE 0.00 K/mm3 (0.00-0.02); NRBC Auto 0.0 /100 WBC (0.0-0.2); Platelet Count 365 K/mm3 (150-400); RDW Coefficient Variation 15.9 % (11.7-14.2); RDW Standard Deviation 45.7 fL (35.1-46.3)
[2025-10-11 20:30] LABS: Alanine Aminotransfer (ALT/SGP 17 U/L (12-78); Albumin, Blood 3.0 g/dL (3.4-5.0); Albumin/Globulin Ratio 0.9 (0.8-1.8); Anion Gap 7 mmol/L (3-11); Aspartate Aminotrans (AST/SGOT 5 U/L (12-37); Bilirubin, Total 0.4 mg/dL (0.1-1.0); Blood Urea Nitrogen 17 mg/dL (8-24); CHOL/HDL RATIO 3.5; CO2, Blood 29 mmol/L (21-32); Calcium, Blood 9.2 mg/dL (8.5-10.1); Chloride, Blood 102 mmol/L (98-108); Cholesterol 153 mg/dL (50-200); Creatinine, Blood 0.59 mg/dL (0.60-1.20); Globulin, Blood 3.5 g/dL (2.2-4.0); Glucose, Blood 261 mg/dL (70-99); HDL Cholesterol 44 mg/dL (>39); LDL/HDL RATIO 1.8; Low Density Lipoprotein Chol 78 mg/dL (0-110); Potassium, Blood 4.5 mmol/L (3.5-5.5); Sodium, Blood 133 mmol/L (136-145); Total Protein, Blood 6.5 g/dL (6.4-8.2); Triglycerides 154 mg/dL (30-160); Very Low Density Lipoprot Chol 30 mg/dL (6-32)
== END ==
LOC: LAB SHORT 11:20 → LAB 11:20
DX: J44.9 Chronic obstructive pulmonary disease, unspecified (principal); E11.65 Type 2 diabetes mellitus with hyperglycemia
CPT/HCPCS: 80053; 80061; 85027

== ENCOUNTER → 2025-11-09 | Outpatient (CLI) | payer OTHER ==
[2025-11-09 19:14] LABS: Ferritin, Serum 258.0 ng/mL (26-388); Total Iron Binding Capacity 236.0 ug/dL (250-450)
[2025-11-11 11:20] LABS: HIV 1,2 COMBO ANTIGEN/ANTIBODY Negative (Negative)
[2025-11-11 11:53] LABS: HEPATITIS C AB CIA INTERP Negative (Negative); HEPATITIS C ANTIBODY CIA INDEX 0.05 IV
== END ==
LOC: LAB 15:34 → LAB SHORT 15:34
DX: E61.1 Iron deficiency (principal); Z11.4 Encounter for screening for human immunodeficiency virus [HIV]; Z11.59 Encounter for screening for other viral diseases
CPT/HCPCS: 82728; 83540; 83550; 86803; 87389